=== PATIENT | male | born 1930 | race Caucasian/White ===

== ENCOUNTER → 2016-09-29 | Outpatient (CLI) | payer OTHER ==
--- NOTE | 2016-09-29 11:34 | DX ---
Right shoulder 3 views History: Pain, fall 3 months ago. Comparison: None available. Findings: Old healed right posterolateral fourth rib fracture is noted. Moderate acromioclavicular ar throsis is present. Alignment of the glenohumeral joint is normal. The acromioclavicular and coracocl avicular relationships are normal. Impression: 1. Moderate acromioclavicular arthrosis. 2. Old right fourth rib fracture.
--- NOTE | 2016-09-29 11:39 | DX ---
Right hip 2 views History: Fall 3 weeks ago, pain. Comparison: Lumbar spine July 19, 2014. Findings: Bilateral hip arthroplasties are present without evidence of loosening. There is lucency th rough hypertrophic change in the region of the right greater trochanter, which could be related to fr acture or heterotopic ossification. The greater trochanter was outside the [id number] on the alexis rison MR lumbar spine. Alignment is normal. Severe degenerative change is present in the visualized l umbar spine. Surgical clips overlie the inferior pelvis. Impression: 1. Lucency through the right greater trochanter, which may be related to fracture or heterotopic ossi fication, with normal appearance of the right hip arthroplasty. 2. 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
== END ==
LOC: BMCIMAGING 10:06
PROVIDERS: ATTEND Family Medicine
DX: M25.551 Pain in right hip (principal); M51.36 Other intervertebral disc degeneration, lumbar region; M19.011 Primary osteoarthritis, right shoulder; W19.XXXA Unspecified fall, initial encounter

== ENCOUNTER → 2018-06-17 | Outpatient (CLI) | payer OTHER ==
[~2018-06-17] MED LIST: IOPAMIDOL (ISOVUE-300) 100 ML BTL ONE
== END ==
LOC: FIMAGING 09:25
PROVIDERS: ATTEND Family Medicine Geriatric Medicine
DX: G31.9 Degenerative disease of nervous system, unspecified (principal); R90.82 White matter disease, unspecified; H61.23 Impacted cerumen, bilateral
CPT/HCPCS: 70470; Q9967

== ENCOUNTER 2018-10-01 15:25 | Emergency (ER) | payer OTHER ==
--- NOTE | 2018-10-01 15:47 | EDPHY ---
HPI/HX/ROS/PE/MDM Narrative: CHIEF COMPLAINT: Fall, finger injury HPI: The patient is an anticoagulated 88 y/o male with a history of hypertension and ME who arrives with his family member complaining of right finger injury secondary to a mechanical slip and fall on the sidewalk one hour prior to arrival. He describes striking the back of his head on the sidewalk without associated LOC, weakness, paresthesias, or acute neck or back pain. He was able to stand up after the fall. He is primarily complaining of right little finger pain. He denies chest pain, dyspnea, abdominal pain, pelvis pain, weakness, paresthesias, or other extremity injuries. REVIEW OF SYSTEMS: A comprehensive 10 system review of systems is otherwise negative aside from elements mentioned in the history of present illness. PMH: Hypertension, ME - anticoagulant SOCIAL HISTORY: Family member at bedside. Lives in [place]. . Retired. PHYSICAL EXAM: General:Patient is alert, in no acute distress. Head: Atraumatic. ENT:Eyes are normal to inspection. ENT inspection normal. Neck: Normal inspection. Full range of motion. Respiratory:No respiratory distress. Breath sounds normal bilaterally. Cardiovascular: Regular rate and rhythm. Strong peripheral pulses. Normal cap refill. Abdomen:The abdomen is nontender to palpation. There are no peritoneal signs. Back: Normal to inspection. No tenderness to palpation. Skin: Normal color. No rash. Warm and dry. Extremities: Ecchymosis and skin tear volar aspect of right 5th finger at DIP joint, otherwise normal appearance. Full range of motion. Neuro: Oriented x3. Normal motor function. Normal sensory function. ED Course: 88 y/o male on anticoagulants presents for evaluation of head strike and right little finger injury secondary to mechanical slip and fall this afternoon. Exam is atraumatic apart from ecchymosis and skin tear of DIP joint on right little finger. Neuro exam is nonfocal. Due to anticoagulation and age, plan for head CT for evaluation of intracranial injury in addition to finger x-ray. Head CT: negative Finger x-ray: nondisplaced fracture of distal phalanx Reassessed patient and discussed findings. Exam remains unchanged. [place]um[place]am splint applied to finger. Patient will bed discharged with standard care and follow up instructions. Referral to hand specialist provided. Return precautions discussed. He and his family are comfortable with plan for discharge. - Data Points Imaging Results: Imaging Impressions Hand X-Ray 10/01/18 15:44 Impression: Nondisplaced fracture involving the base of the 5th distal phalanx. Head CT 10/01/18 15:45 Impression: 1. Stable moderate atrophy. 2. No hemorrhage, mass effect, or definite acute peripheral infarct. 3. Stable moderate nonspecific hypodensities in the white matter of bilateral cerebral hemispheres. Differential diagnosis includes microvascular ischemic disease, post-infectious/post-inflammatory sequela, atypical demyelinating disease, or migraine-related sequela. Small white matter lacunar infarcts may also have this appearance. If symptoms worsen, additional imaging may be necessary. Imaging: Discussed imaging studies w/ call center rn Radiologist, I viewed and interpreted images myself General Time Seen by Provider: 10/01/18 15:29 Initial Vital Signs: Initial Vital Signs Temperature (C) 36.5 C 10/01/18 15:34 Heart Rate 73 10/01/18 15:34 Respiratory Rate 18 10/01/18 15:34 Blood Pressure 136/84 H 10/01/18 15:34 O2 Sat (%) 96 10/01/18 15:34 O2 Delivery Mode Room Air Allergies/Adverse Reactions: No Known Allergies Allergy (Unverified 10/01/18 15:33) Home Medications: Medication Instructions Recorded Unknown Blood Thinner 10/01/18 Departure - Departure Disposition: Home, Routine, Self-Care Clinical Impression: Fall Qualifiers: Encounter type: initial encounter Qualified Code(s): W19.XXXA - Unspecified fall, initial encounter Finger fracture Qualifiers: Encounter type: initial encounter Finger: little finger Fracture type: closed Phalanx: distal Fracture alignment: nondisplaced Laterality: right Qualified Code(s): S62.666A - Nondisplaced fracture of distal phalanx of right little finger, initial encounter for closed fracture Condition: Good Instructions: Finger Fracture (ED), Fall Prevention for Older Adults (ED) Additional Instructions: 1. Wear splint until follow up appointment. 2. Tylenol as directed on the packaging as needed for pain for the next few days. You can also apply ice packs to sore areas intermittently for the next 1- 2 days if helpful for pain. 3. Follow up with hand specialist in the next week for reevaluation. 4. Return for worsening of condition. Referrals: Fahad Singh MD [Primary Care Provider] - As per Instructions Perez Gonzalez MD [Medical Doctor] - As per Instructions Report Scribed for: Franc Porter Report Scribed by: Magdalena Morrissey Date of Report: 10/01/18 Time of Report: 15:47 Physician Review and Approval Statement: Portions of this note were transcribed by an ED scribe. I personally performed the history, physical exam, and medical decision making; and confirm the accuracy of the information in the transcribed note.
[2018-10-01 17:04] VITALS: BP 149/81
== END 2018-10-01 17:05 | disposition home or self-care (01) ==
DX: S62.666A Nondisplaced fracture of distal phalanx of right little finger, initial encounter for closed fracture (principal); S06.9X0A Unspecified intracranial injury without loss of consciousness, initial encounter; I10 Essential (primary) hypertension; I25.2 Old myocardial infarction; Z79.01 Long term (current) use of anticoagulants; W01.0XXA Fall on same level from slipping, tripping and stumbling without subsequent striking against object, initial encounter; Y92.480 Sidewalk as the place of occurrence of the external cause
CPT/HCPCS: 70450; 73130; 99284; L3925

== ENCOUNTER → 2018-11-16 | Outpatient (CLI) | payer OTHER | LOC: FIMAGING 15:47 | PROVIDERS: ATTEND Orthopaedic Surgery | DX: T84.050A Periprosthetic osteolysis of internal prosthetic right hip joint, initial encounter (principal); Z96.643 Presence of artificial hip joint, bilateral ==

== ENCOUNTER 2018-12-01 19:42 | Inpatient (IN) | payer OTHER ==
[2018-12-01] MEDS ORDERED: NS 1,000 ML IV ONE (20:26)
--- NOTE | 2018-12-01 20:33 | EDPHY ---
H & P Time Seen by Provider: 12/01/18 20:04 HPI/ROS: Chief complaint. Painful legs HPI. 88-year-old male when I go into the room is having speech difficulty. His granddaughter is here and says that she saw him at 8:00 a.m. This morning and he was normal. His speech was normal and he was having normal mentation. She went to check on him at 7:20 this evening and found the patient to be confused and having trouble speaking. She brought him to the emergency department and the complaint was painful legs. Again when I went to he was clearly having difficulty speaking and I have called a stroke activation. Patient lives independently in assisted living and as far as we know no one has seen the patient between 8:00 a.m. And 7:20 p.m. So we do not know the onset of his speech difficulty. Granddaughter tells me that he may have a break in the bones of 1 of his legs. The patient is having a hard time telling me whether there has been recent fall or trauma. As far as I can tell no chest pain or trouble breathing. No abdominal pain. ROS 10 systems were reviewed and negative with the exception of the elements mentioned in the history of present illness Past Medical/Surgical History: Hypertension, recent femur fracture, PA Social History: Single, nonsmoker, no alcohol Smoking Status: Never smoked Physical Exam: General Appearance: Alert well-developed male moderate distress vital signs are stable Eyes: Pupils equal and round no pallor or injection. ENT, Mouth: Mucous membranes are moist. Respiratory: There are no retractions, lungs are clear to auscultation. Cardiovascular: Regular rate and rhythm. Gastrointestinal: Abdomen is soft and nontender, no masses, bowel sounds normal. Neurological: Awake and alert, sensory and motor exams grossly normal. Speech is garbled. Patient is confused. Cranial nerves appear intact possibly slight right mouth droop. [id number] is somewhat ataxic with both hands and patient has a hard time following commands. Appears to be some weakness in his right leg Skin: Warm and dry, no rashes. Musculoskeletal: Neck is supple nontender. Extremities symmetrical, full range of motion. Pain both hips Psychiatric: Patient is oriented X 3, there is no agitation. Constitutional: Initial Vital Signs Temperature (C) 37.2 C 12/01/18 19:53 Heart Rate 62 12/01/18 19:53 Respiratory Rate 18 12/01/18 19:53 Blood Pressure 133/70 H 12/01/18 19:53 O2 Sat (%) 95 12/01/18 19:53 O2 Delivery Mode Room Air Allergies/Adverse Reactions: No Known Allergies Allergy (Unverified 12/01/18 19:55) Home Medications: Medication Instructions Recorded Clopidogrel Bisulfate [Clopidogrel] 75 mg PO DAILY 12/01/18 Lisinopril [Zestril 5 mg (*)] 5 mg PO DAILY 12/01/18 Metoprolol Succinate 25 mg PO DAILY 12/01/18 Medical Decision Making - Diagnostics EKG Interpretation: EKG interpreted by me shows normal sinus rhythm normal interval. Normal axis. QRS is normal. Anterior Q-waves. No significant ST elevation or depression. No arrhythmia. Rate 67 Imaging Results: Imaging Impressions Head CT 12/01/18 20:27 Impression: Elderly head CT. Nothing acute identified.. Initial results discussed with Dr. Skelton with the patient on the CT table. Final results are concordant with the initial interpretation at 20:58 PM. General information for patients regarding this examination can be found at [email or web address]. If you have questions or comments about this report, please contact me at (hospital) or [phone] (cell). Noncontrast head CT negative. Reviewed by me and discussed with Dr. Nava Perfusion studies show a normal CT angiogram of his head. 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 Carotids are normal. Procedures: IV normal saline monitor ED Course/Re-evaluation: The patient is out of treatment window for tPA as last time known normal was 8: 00 a.m.. He does not have a large vessel occlusion that would require thrombectomy. X-rays of his pelvis and legs are pending and currently being done I consulted discussed case with Dr. Remy, hospitalist who agrees to the admission Differential Diagnosis: Appears the patient has had CVA. Out of treatment window. Plan is admission for stroke workup - Data Points Laboratory Results: Laboratory Results 12/01/18 20:20 12/01/18 20:20 12/01/18 12/01/18 12/01/18 20:24 20:20 20:20 WBC RBC Hgb POC Hgb 13.3 gm/dL L gm/dL (13.7-17.5) Hct POC Hct 39 % L % (40-51) MCV MCH MCHC RDW Plt Count MPV Neut % (Auto) Lymph % (Auto) [place] % (Auto) Eos % (Auto) Baso % (Auto) Nucleat RBC Rel Count Absolute Neuts (auto) Absolute Lymphs (auto) Absolute Monos (auto) Absolute Eos (auto) Absolute Basos (auto) Absolute Nucleated RBC Immature Gran % Seg Neutrophils % Band Neutrophils % Lymphocytes % Monocytes % Eosinophils % Basophils % Metamyelocytes % Myelocytes % Promyelocytes % Blast Cells % Immature Gran # Absolute Seg Neuts Absolute Band Neuts Absolute Lymphocytes Absolute Monocytes Absolute Eosinophils Absolute Basophils Absolute Metamyelocyte Absolute Myelocytes Absolute Promyelocytes Absolute Plasma Cells Nucleated RBCs Absolute Blast Cells Plasma Cells % Platelet Estimate Oval Macrocytes PT 13.7 SEC SEC (12.0-15.0) INR 1.09 (0.83-1.16) POC Sodium 134 mEq/L L mEq/L (135-145) Sodium 128 mEq/L L mEq/L (135-145) POC Potassium 4.2 mEq/L mEq/L (3.3-5.0) Potassium 4.3 mEq/L mEq/L (3.5-5.2) POC Chloride 100 mEq/L mEq/L (97-110) Chloride 99 mEq/L mEq/L (97-110) Carbon Dioxide 23 mEq/l mEq/l (22-31) POC Total CO2 21 mEq/L L mEq/L (22-31) Anion Gap 6 mEq/L mEq/L (6-14) POC BUN 20 mg/dL mg/dL (7-23) BUN 21 mg/dL mg/dL (7-23) Creatinine 1.2 mg/dL mg/dL (0.7-1.3) POC Creatinine 1.2 mg/dL mg/dL (0.7-1.3) Estimated GFR 57 Glucose 92 mg/dL mg/dL (70-100) POC Glucose 96 mg/dL mg/dL (70-100) Calcium 8.7 mg/dL mg/dL (8.5-10.4) 12/01/18 20:20 WBC 12.61 10^3/uL H 10^3/uL (3.80-9.50) RBC 4.12 10^6/uL L 10^6/uL (4.40-6.38) Hgb 12.8 g/dL L g/dL (13.7-17.5) POC Hgb Hct 38.0 % L % (40.0-51.0) POC Hct MCV 92.2 fL fL (81.5-99.8) MCH 31.1 pg pg (27.9-34.1) MCHC 33.7 g/dL g/dL (32.4-36.7) RDW 13.2 % % (11.5-15.2) Plt Count 366 10^3/uL 10^3/uL (150-400) MPV 10.2 fL fL (8.7-11.7) Neut % (Auto) Not Reported Lymph % (Auto) Not Reported [place] % (Auto) Not Reported Eos % (Auto) Not Reported Baso % (Auto) Not Reported Nucleat RBC Rel Count Not Reported Absolute Neuts (auto) Not Reported Absolute Lymphs (auto) Not Reported Absolute Monos (auto) Not Reported Absolute Eos (auto) Not Reported Absolute Basos (auto) Not Reported Absolute Nucleated RBC Not Reported Immature Gran % Not Reported Seg Neutrophils % 64.0 % % Band Neutrophils % 0.0 % % Lymphocytes % 15.0 % % Monocytes % 16.0 % % Eosinophils % 3.0 % % Basophils % 2.0 % % Metamyelocytes % 0.0 % % Myelocytes % 0.0 % % Promyelocytes % 0.0 % % Blast Cells % 0.0 % % Immature Gran # Not Reported Absolute Seg Neuts 8.07 10^3/uL H 10^3/uL (1.70-6.50) Absolute Band Neuts 0.00 10^3/uL 10^3/uL (0.00-0.70) Absolute Lymphocytes 1.89 10^3/uL 10^3/uL (1.00-3.00) Absolute Monocytes 2.02 10^3/uL H 10^3/uL (0.30-0.80) Absolute Eosinophils 0.38 10^3/uL 10^3/uL (0.03-0.40) Absolute Basophils 0.25 10^3/uL H 10^3/uL (0.02-0.10) Absolute Metamyelocyte 0.00 10^3/mL 10^3/mL (0.00-0.00) Absolute Myelocytes 0.00 10^3/mL 10^3/mL (0.00-0.00) Absolute Promyelocytes 0.00 10^3/uL 10^3/uL (0.00-0.00) Absolute Plasma Cells 0.00 10^3/uL 10^3/uL (0.00-0.00) Nucleated RBCs 0 /100 WBC /100 WBC (0-0) Absolute Blast Cells 0.00 10^3/uL 10^3/uL (0.00-0.00) Plasma Cells % 0.0 % % Platelet Estimate ADEQUATE (ADEQ) Oval Macrocytes 1+ H PT INR POC Sodium Sodium POC Potassium Potassium POC Chloride Chloride Carbon Dioxide POC Total CO2 Anion Gap POC BUN BUN Creatinine POC Creatinine Estimated GFR Glucose POC Glucose Calcium Medications Given: Sodium Chloride (Ns) 1,000 mls @ 500 mls/hr IV EDNOW ONE PRN Reason: Protocol Stop: 12/01/18 22:25 Last Admin: 12/01/18 20:56 Dose: 1,000 mls Point of Care Test Results: Chemistry 12/01/18 20:24 POC Sodium 134 mEq/L L mEq/L (135-145) POC Potassium 4.2 mEq/L mEq/L (3.3-5.0) POC Chloride 100 mEq/L mEq/L (97-110) POC Total CO2 21 mEq/L L mEq/L (22-31) POC BUN 20 mg/dL mg/dL (7-23) POC Creatinine 1.2 mg/dL mg/dL (0.7-1.3) POC Glucose 96 mg/dL mg/dL (70-100) ISTAT H&H 12/01/18 20:24 POC Hgb 13.3 gm/dL L gm/dL (13.7-17.5) POC Hct 39 % L % (40-51) Departure - Departure Disposition: [facility] Clinical Impression: CVA (cerebral vascular accident) Qualifiers: CVA mechanism: unspecified Qualified Code(s): I63.9 - Cerebral infarction, unspecified Condition: Fair Referrals: NONE *PRIMARY CARE P,. [Primary Care Provider] - As per Instructions
[2018-12-01 20:40] LABS: PLATELET COUNT 366 10^3/uL (150-400)
[2018-12-01 20:48] LABS: INR 1.09 (0.83-1.16); PROTIME(PATIENT) 13.7 SEC (12.0-15.0)
--- NOTE | 2018-12-01 21:23 | CPEKG ---
Test Reason : OPEN Blood Pressure : / mmHG Vent. Rate : 067 BPM Atrial Rate : 066 BPM P-R Int : 218 ms QRS Dur : 086 ms QT Int : 389 ms P-R-T Axes : -22 024 071 degrees QTc Int : 411 ms Sinus rhythm Borderline prolonged ME interval Consider left ventricular hypertrophy Anterior Q waves, possibly due to LVH Confirmed by Sana Skelton ([id number]) on 12/01/2018 9:22:37 PM Referred By: SANA SKELTON Confirmed By:Sana Skelton
[2018-12-01] MEDS ORDERED: ONDANSETRON 4 MG/2 ML VIAL IVP PRN (21:34)
[2018-12-01] MEDS ORDERED: ONDANSETRON DISINTEGRATING 4 MG TAB PO PRN (21:34)
--- NOTE | 2018-12-01 21:47 | PDGENHP ---
History and Physical - Chief Complaint Slurred Speech - History of Present Illness Mack Patel is a 88 yo M with a PMHx of [place], HTN who presents to [facility] for slurred speech. His granddaughter is at bedside who has helped with history taking. She reports that she spoke with him on the telephone around 8AM and he was normal. Her mother then spoke with the patient around 7:30 PM and he had confusion and slurred speech. He was then brought to ED. Pt is complaining of pain in his legs. His granddaughter notes that he broke one of his legs 1 month ago and has been in some pain since. History Information - Allergies/Home Medication List Allergies/Adverse Reactions: No Known Allergies Allergy (Unverified 12/01/18 19:55) Home Medications: Clopidogrel Bisulfate [Clopidogrel] 75 mg PO DAILY 12/01/18 [Last Taken Unknown] Lisinopril [Zestril 5 mg (*)] 5 mg PO DAILY 12/01/18 [Last Taken Unknown] Metoprolol Succinate 25 mg PO DAILY 12/01/18 [Last Taken Unknown] I have personally reviewed and updated: family history, medical history, social history, surgical history - Past Medical History hypertension, myocardial infarction - Surgical History Additional surgical history: Hip replacement - Family History Positive for: non-pertinent - Social History Smoking Status: Never smoked Review of Systems Review of Systems: Unable to obtain due to AMS Physical Exam Physical Exam: Temp Pulse Resp BP Pulse Ox 37.2 C 62 18 133/70 H 95 12/01/18 19:53 12/01/18 19:53 12/01/18 19:53 12/01/18 19:53 12/01/18 19:53 Constitutional: no apparent distress, chronically ill appearing Eyes: PERRL Ears, Nose, Mouth, Throat: dry mucous membranes Cardiovascular: regular rate and rhythym Respiratory: no respiratory distress Gastrointestinal: soft, non-tender abdomen Musculoskeletal: generalized weakness Neurologic: No AAOx3 Lab Data & Imaging Review 12/01/18 20:20 12/01/18 20:20 WBC 12.61 10^3/uL (3.80-9.50) H 12/01/18 20:20 RBC 4.12 10^6/uL (4.40-6.38) L 12/01/18 20:20 Hgb 12.8 g/dL (13.7-17.5) L 12/01/18 20:20 POC Hgb 13.3 gm/dL (13.7-17.5) L 12/01/18 20:24 Hct 38.0 % (40.0-51.0) L 12/01/18 20:20 POC Hct 39 % (40-51) L 12/01/18 20:24 MCV 92.2 fL (81.5-99.8) 12/01/18 20:20 MCH 31.1 pg (27.9-34.1) 12/01/18 20:20 MCHC 33.7 g/dL (32.4-36.7) 12/01/18 20:20 RDW 13.2 % (11.5-15.2) 12/01/18 20:20 Plt Count 366 10^3/uL (150-400) 12/01/18 20:20 MPV 10.2 fL (8.7-11.7) 12/01/18 20:20 Neut % (Auto) Not Reported 12/01/18 20:20 Lymph % (Auto) Not Reported 12/01/18 20:20 [place] % (Auto) Not Reported 12/01/18 20:20 Eos % (Auto) Not Reported 12/01/18 20:20 Baso % (Auto) Not Reported 12/01/18 20:20 Nucleat RBC Rel Count Not Reported 12/01/18 20:20 Absolute Neuts (auto) Not Reported 12/01/18 20:20 Absolute Lymphs (auto) Not Reported 12/01/18 20:20 Absolute Monos (auto) Not Reported 12/01/18 20:20 Absolute Eos (auto) Not Reported 12/01/18 20:20 Absolute Basos (auto) Not Reported 12/01/18 20:20 Absolute Nucleated RBC Not Reported 12/01/18 20:20 Immature Gran % Not Reported 12/01/18 20:20 Seg Neutrophils % 64.0 % 12/01/18 20:20 Band Neutrophils % 0.0 % 12/01/18 20:20 Lymphocytes % 15.0 % 12/01/18 20:20 Monocytes % 16.0 % 12/01/18 20:20 Eosinophils % 3.0 % 12/01/18 20:20 Basophils % 2.0 % 12/01/18 20:20 Metamyelocytes % 0.0 % 12/01/18 20:20 Myelocytes % 0.0 % 12/01/18 20:20 Promyelocytes % 0.0 % 12/01/18 20:20 Blast Cells % 0.0 % 12/01/18 20:20 Immature Gran # Not Reported 12/01/18 20:20 Absolute Seg Neuts 8.07 10^3/uL (1.70-6.50) H 12/01/18 20:20 Absolute Band Neuts 0.00 10^3/uL (0.00-0.70) 12/01/18 20:20 Absolute Lymphocytes 1.89 10^3/uL (1.00-3.00) 12/01/18 20:20 Absolute Monocytes 2.02 10^3/uL (0.30-0.80) H 12/01/18 20:20 Absolute Eosinophils 0.38 10^3/uL (0.03-0.40) 12/01/18 20:20 Absolute Basophils 0.25 10^3/uL (0.02-0.10) H 12/01/18 20:20 Absolute Metamyelocyte 0.00 10^3/mL (0.00-0.00) 12/01/18 20:20 Absolute Myelocytes 0.00 10^3/mL (0.00-0.00) 12/01/18 20:20 Absolute Promyelocytes 0.00 10^3/uL (0.00-0.00) 12/01/18 20:20 Absolute Plasma Cells 0.00 10^3/uL (0.00-0.00) 12/01/18 20:20 Nucleated RBCs 0 /100 WBC (0-0) 12/01/18 20:20 Absolute Blast Cells 0.00 10^3/uL (0.00-0.00) 12/01/18 20:20 Plasma Cells % 0.0 % 12/01/18 20:20 Platelet Estimate ADEQUATE (ADEQ) 12/01/18 20:20 Oval Macrocytes 1+ H 12/01/18 20:20 PT 13.7 SEC (12.0-15.0) 12/01/18 20:20 INR 1.09 (0.83-1.16) 12/01/18 20:20 POC Sodium 134 mEq/L (135-145) L 12/01/18 20:24 Sodium 128 mEq/L (135-145) L 12/01/18 20:20 POC Potassium 4.2 mEq/L (3.3-5.0) 12/01/18 20:24 Potassium 4.3 mEq/L (3.5-5.2) 12/01/18 20:20 POC Chloride 100 mEq/L (97-110) 12/01/18 20:24 Chloride 99 mEq/L (97-110) 12/01/18 20:20 Carbon Dioxide 23 mEq/l (22-31) 12/01/18 20:20 POC Total CO2 21 mEq/L (22-31) L 12/01/18 20:24 Anion Gap 6 mEq/L (6-14) 12/01/18 20:20 POC BUN 20 mg/dL (7-23) 12/01/18 20:24 BUN 21 mg/dL (7-23) 12/01/18 20:20 Creatinine 1.2 mg/dL (0.7-1.3) 12/01/18 20:20 POC Creatinine 1.2 mg/dL (0.7-1.3) 12/01/18 20:24 Estimated GFR 57 12/01/18 20:20 Glucose 92 mg/dL (70-100) 12/01/18 20:20 POC Glucose 96 mg/dL (70-100) 12/01/18 20:24 Calcium 8.7 mg/dL (8.5-10.4) 12/01/18 20:20 Assessment & Plan Assessment: Altered Mental Status - Concerning for CVA given slurred speech - CT Head w/o IVC on admission w/o acute abnormalities - CTA Head and neck showing widely patent carotid system, 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 - S/p ASA in the ED, already on Plavix - Out of tPA window, unknown onset of symptoms - MRI Brain ordered - TTE bubble study ordered - Lipid panel ordered - Neurology consult placed for the AM - PT/OT/CAM MILLING MACHINE OPERATOR ordered Leg Pain - Recent femur fracture which in non-operative per granddaughter - Xrays are currently pending - PRN pain control - PT/OT ordered Hyponatremia - Na 128 on admission, (POC 134) - Likely hypovolemic - S/p IVF, repeat Na in the AM [place] - Continue home meds pending med rec HTN - Continue home Lisinopril pending med rec FEN: IVF DVT PPx: Lovenox Code: FULL, discussed with granddaughter, she has to discuss with her parents who are POA Dispo: Admit to Observation
[2018-12-01] MEDS: HEPARIN 5,000 UNIT/0.5 ML INJ SC SCH (23:11)
[2018-12-02] MEDS: HEPARIN 5,000 UNIT/0.5 ML INJ SC SCH ×3 (06:09→20:38)
[2018-12-02] MEDS: CLOPIDOGREL BISULFATE 75 MG TAB PO SCH (08:53)
[2018-12-02] MEDS: LISINOPRIL 5 MG TAB PO SCH (08:54)
[2018-12-02] MEDS: METOPROLOL SUCCINATE XR 25 MG TAB PO SCH (08:54)
[2018-12-02] MEDS ORDERED: ASPIRIN 81 MG CHEWABLE TAB PO SCH (09:00)
--- NOTE | 2018-12-02 09:29 | GCON ---
[f rep st] CONSULTATION NEUROLOGIC CONSULTATION REFERRING PHYSICIAN: Brian Remy DO HISTORY: The patient is an 88-year-old gentleman I am asked to see in neurologic consultation regard ing possible stroke. The patient's daughter is in [place], but I spoke to her on the phone. She s ays that he has had progressing dementia for several years and that is getting worse, and she is used to him having trouble with some of his language in verbal expression, but there was a rather signifi cant change yesterday when he was almost "speaking a foreign language." He had apparently been doing fine in the morning, but by 8 p.m., it was clear that there was something not right with his verbal expression, and either slurring of speech or some aphasia was being described. He came to the [facility] for evaluation, and due to the lack of knowledge of true onset, was not a candidate for tPA. He h ad a head CT that showed no hemorrhage or acute pathology. 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 The patient has continued to have some trouble with his communication , but how much of this is different from his baseline is a little hard to say. He denies any headach e. In fact, he is amnestic for why he is even here. He does not think there is anything wrong with his speech, and is very calm and pleasant, but does not recognize any problem. He did not know that his family had him come to the hospital. REVIEW OF SYSTEMS: Negative chest pain, palpitations, or shortness of breath. On the additional past medical history, his daughter says that he had a stent about 5 years ago and h as been on Plavix since that time. He is treated for some hypertension with lisinopril and metoprolo l. He has had hip replacement. He has recent recognition of a small fracture of the right femur sharda t does not require any surgical intervention. He also had a fall a few months ago with an injury to finger. He is . He is retired from the [employer] and moved throughout most of his life, and currently lives at the [facility]. ALLERGIES: There are no known drug allergies. Currently in the hospital, he is receiving Plavix, subcutaneous heparin, lisinopril, metoprolol, Zofr an as needed. PHYSICAL EXAMINATION: VITAL SIGNS: Blood pressure is 149/73. Pulse of 65, respirations 16, tempera ture 36.4. GENERAL: Well developed, in no acute distress. EYES: Clear. NECK: Supple with no brui ts or masses. CARDIAC: Regular rate and rhythm. No murmur. NEUROLOGIC EXAM: He is awake and alert with fairly good attention. His concentration is diminished. He has a hard time with detailed verbal communication, although generally conveys his ideas fairly effectively. He has a tendency to confabulate or make some paraphasic errors. He could not tell me the city or the state, and when I gave him a list, he did not recognize [place] as being the state [place] is in. He will talk in general terms about his situation, but have a hard time with specificity. There is a fairly significant poverty of thought. He did not know the month or the year, and started getting confused thinking that I was asking him his age. He could name objects. He was able to read sentences and single words, and made mild errors only. Daly dewitt could look at a figure and interpret the basics, but some of the finer detail he needed guidance to recognize. He can perform basic calculations and can spell. Pupils are 2 mm and reactive. Extraoc ular movements are intact. Normal facial sensation and strength. Motor exam reveals normal muscle b ulk and tone, 5/5 strength. Palate elevates symmetrically. Tongue protrudes midline. Hearing is pr eserved. Sensation is preserved for temperature and light touch. Reflexes 1+. No ataxia on finger- to-nose. LABORATORY STUDIES: As outlined, with white count of 12,000, hematocrit of 39%. Normal INR. Chemis try: Sodium of 134, LDL cholesterol 64, otherwise normal basic metabolic panel. Urinalysis unremark able. NIH Stroke Scale is 1. IMPRESSION: Total unit time of 70 minutes. This patient has experienced a change in language consis tent with aphasia on top of a baseline advancing dementia where he also has some expressive language difficulties confirmed by his daughter. Therefore, how much of this is truly new compared to his inder carrasco is a little hard to say. However, his daughter confirms that what she heard yesterday was dram atically different and not something she had seen before, so I suspect he had either a small stroke i n the left hemisphere middle cerebral artery territory or a TIA, and may be close to his baseline aga in. Outside of the mild aphasia and the clear underlying dementia, he is comfortable. No large vess el occlusion is evident from the workup. We will obtain brain MRI for further clarification of kathy e, and echocardiogram will be obtained, as well. Once we know for sure about the MRI, we can decide about adding aspirin to the Plavix, but I will continue the Plavix 75 mg for now. We can also consid er pros and cons of adding statin therapy, but generally would recommend statin therapy for secondary stroke prophylaxis even with a good LDL as he has. /[id number]/MODL
--- NOTE | 2018-12-02 11:17 | ECHO ---
[email or web address] [address] [address] Main: [phone] Echocardiography Examination Transthoracic Name: Jonathan VARELA MR#: [id number] Study Date: 12/02/2018 Study Time: 07:41 AM Date of : 1930 Age: 88 year(s) Height: 182.9 cm (72 in.) Weight: 77.11 kg (170 lb.) BSA: 1.99 m2 Gender: Male Examination: Echo Contrast: Image Quality: Adequate Rhythm: Normal sinus rhythm Heart Rate: 63 bpm BP: / Indication: Ischemic Stroke, Confusion Procedure Staff Referring Physician: Gasoline Tractor Operator: Maurilio Magdaleno RDCS Reading Physician: Daniel Wheeler MD Requesting Provider: Ordering Physician: Brian Remy Indication: Ischemic Stroke, Confusion Measurements Chambers AV/MV Label Value Normal Value Label Value Normal Value EF lower range (%) 50 % AV PGmax 11 mmHg EF upper range (%) 55 % AV PGmean 6 mmHg IVSd, 2D 0.8 cm (0.6cm - 1.1cm) AV Vmax 1.66 m/s LVDd, 2D 4.9 cm (4.2cm - 5.9cm) DHAVAL (continuity eq. 1.6 cm2 LVDs, 2D 3.5 cm (2.1cm - 4cm) Vmax) LVEF, 2D 54 % (54% - 74%) DHAVAL D (continuity eq. 2 cm2 LVOT PGmax 2 mmHg VTI) LVOT PGmean 1 mmHg MV A Vmax 0.68 m/s LVOT Vmax 0.79 m/s (0.7m/s - 1.1m/s) MV E' lateral 0.06 m/s LVOT Vmean 0.55 m/s MV E' mean 0.06 m/s LVOTd 2.1 cm (1.9cm - 2.1cm) MV E' septal 0.05 m/s LVPWd, 2D 0.8 cm (0.6cm - 1cm) MV E Vmax 0.74 m/s LA Volume, BP 61 ml (18ml - 58ml) MV E/A 1.09 LADs, 2D 3.2 cm (3cm - 4cm) MV E/E' lateral 11.9 LAESV index, BP 30.7 ml/m2 MV E/E' mean 13.45 Additional Vessels MV E/E' septal 14.3 (0.45 - 1.25) Label Value Normal Value TV/PV AoRoot, MM 2.6 cm (2.2cm - 3.7cm) Label Value Normal Value RA Pressure 5 mmHg Patient: Jonathan VARELA Study Date: 12/02/2018 Page 1 of 2 07:41 AM RVSP 19 mmHg TR Pmax 14 mmHg TR Vmax 1.9 m/s Conclusions Overall Conclusions: No pericardial effusion. Anterior hypokinesis. Ejection fraction 50-55%. Injection of agitated saline revealed no evidence of right to left shunting. Right ventricular systolic pressure is 19 mm of mercury. Findings Left Ventricle: There is basilar to mid anteroseptal hypokinesis.. Left ventricle is on the upper limits of normal. Low normal left ventricular systolic function. EF range is estimated at 50 % - 55 %. Left ventricle wall thickness is normal. Left ventricular diastolic function parameters are normal. Right Ventricle: Normal size right ventricle. The RV function appears grossly normal. Left Atrium: The left atrium is normal in size. IAS: An agitated saline study was performed and was negative for intracardiac shunting. Right Atrium: The right atrium is normal in size. Mitral Valve: Trivial mitral regurgitation. No mitral valve stenosis. There is minimal mitral calcification. Aortic Valve: No aortic valve regurgitation. There is no aortic stenosis. Aortic leaflets exhibit mild calcification. The aortic valve is not visualized well enough to rule out a bicuspid morphology. Tricuspid Valve: Trivial tricuspid regurgitation. Right Ventricular systolic pressure is measured at 19 mmHg. Pulmonary artery pressure normal. Pulmonic Valve: Pulmonic leaflets are normal in appearance and function. No pulmonic valve regurgitation is evident. Aorta: The aorta is normal. The aortic root size in M-mode measures 2.6 cm. Aorta Measurements AoRoot, MM is 2.6 cm. Pericardium: No pericardial effusion. Exam Details Procedure Ordered: Echo Procedure Status: Routine study Image Quality: Adequate Facility Location: Cardiac Echo 1 (No Signature Object) Patient: Jonathan VARELA Study Date: 12/02/2018 Page 2 of 2 07:41 AM [id number]
--- NOTE | 2018-12-02 12:38 | HOSPPROG ---
Hospitalist Progress Note Assessment/Plan: 88 year old male with pmh of fairly advanced dementia admitted with slurred speech and aphasia Slurred speech/AMS- concerning for CVA, although paitent denies any problem. CTA head and neck with no acute CVA. Neurology has been consulted who recommends MRI brain, and TTE. I reviewed the echo and find no explanation for his symptoms. He is already on plavix. -await brain MRI -neurology graciously assisting. -cont plavix -could consider statin Leg Pain - Recent femur fracture which in non-operative per granddaughter - Xrays are currently pending - PRN pain control - PT/OT ordered Hyponatremia- suspect hypovolemic hyponatremia. increased to 134 overnight with intravenous saline. Will continue with low dose saline intravenous and repeat Na in am. if fails to correct will obtain urine studies. [place] - Continue home meds, including metoprolol, plavix and lisinopril. HTN - Continue home chloe and bb FEN: IVF DVT PPx: Lovenox Code: DNR per chart. Dispo: change to inpatient for continued eval of aphasia, slurred speech, MRI. Subjective: no complaints. Objective: Vital Signs Temp Pulse Resp BP Pulse Ox 36.7 C 65 18 151/73 H 94 12/02/18 11:45 12/02/18 11:45 12/02/18 11:45 12/02/18 11:45 12/02/18 11:45 Laboratory Results 12/02/18 04:27 12/01/18 12/02/18 12/03/18 05:59 05:59 05:59 Intake Total 200 Balance 200 PT 13.7 SEC (12.0-15.0) 12/01/18 20:20 INR 1.09 (0.83-1.16) 12/01/18 20:20 - Physical Exam Constitutional: no apparent distress, appears nourished, not in pain Eyes: PERRL, anicteric sclera, EOMI Ears, Nose, Mouth, Throat: moist mucous membranes, hearing normal, ears appear normal, no oral mucosal ulcers Cardiovascular: regular rate and rhythym, no murmur, rub, or gallop Respiratory: no respiratory distress, no rales or rhonchi, clear to auscultation Gastrointestinal: normoactive bowel sounds, soft, non-tender abdomen, no palpable masses Genitourinary: no bladder fullness, no bladder tenderness, no renal bruits Skin: no rashes or abrasions, no fluctuance, no induration Musculoskeletal: full muscle strength, no muscle tenderness, normal joint ROM Neurologic: other (oriented to self only. Does not known year, city, state, or president. ) Psychiatric: interacting appropriately Lymph, Heme, Immunologic: no cervical LAD ICD10 Worksheet Patient Problems: Problems Problem Status Onset CVA (cerebral vascular accident) Acute
[2018-12-02] MEDS ORDERED: NS 1,000 ML IV SCH (15:15)
[2018-12-02] MEDS: LORazepam 2 MG/ML INJ IVP PRN ×2 (16:10→20:37)
[2018-12-02] MEDS ORDERED: GADOBUTROL 10 ML VIAL IVP ONE (16:30)
--- NOTE | 2018-12-02 16:58 | ASMTCMCOM ---
CM Note CM Note Notes: Chart Review for Discharge Planning: Patient is an 88 year old male who presented to [facility] ED reporting leg pain and presented with difficulty speaking/slurred speech and aphasia. Patient presented to ED with Grand daughter. Medical history includes dementia, hypertension, Myocardial infarction, recent femur fracture. Patient currently lives at [facility]. OT ordered, recommending ASSISTED/home with 24 hour supervision, PT ordered & recommending SNF, NECK BAND OPERATOR ordered & recommending memory care. CM call to Grand daughter Shante, , she shares he lives at [facility] and has a caregiver that visits 8-10 daily and he also attends adult day services --. He has PT with [facility] on . She shares she would be open to him staying with her when he discharges but is not around very much and is very busy. Shante states she does not know much about her Grandfathers medical history & recommended calling her mom, Marie on her dad's cell phone [phone], who is currently in [facility] on a trip. CM spoke with daughter Marie, CM shared recommendations for SNF, she states he doesn't have history of going to a SNF and though she agrees and thinks it is a good plan, she does not think he will agree and will want to go home. Marie shares she is planning on getting him into an Assisted Living Facility when she returns from [facility] in a month. She states she would like to speak with his MD about the Neuro consult and imaging results. CM call to Tere with [facility] [employer], . MARVA stating we are monitoring patient and will send updates as we have them. *Fiorella Salazar in [facility] for one month, can be reached at [phone]. Plan: Neuro recommended MRI of brain and TTE. CM to follow. D/C Plan: TBD Date Signed: 12/02/2018 04:58 PM Electronically Signed By:Naa Durbin
[2018-12-02] MEDS: ACETAMINOPHEN 325 MG TAB PO PRN (20:37)
[2018-12-03] MEDS: LORazepam 2 MG/ML INJ IVP PRN ×2 (01:17→22:11)
[2018-12-03] MEDS: HEPARIN 5,000 UNIT/0.5 ML INJ SC SCH ×3 (04:44→21:09)
[2018-12-03 05:14] LABS: PLATELET COUNT 352 10^3/uL (150-400)
--- NOTE | 2018-12-03 08:19 | NEUROPROG ---
Assessment: total unit time of 15 minutes. Patient with advance dementia and may have had TIA or just the spectrum of his dementia with aphasia and confusion that is his reported baseline. Disposition in progress. Subjective: The patient has not complaints Objective: Vital Signs Temp Pulse Resp BP Pulse Ox 36.5 C 81 26 H 186/84 H 98 12/03/18 08:00 12/03/18 08:00 12/03/18 08:00 12/03/18 08:00 12/03/18 08:00 Laboratory Results 12/03/18 04:19 12/03/18 04:19 12/02/18 12/03/18 12/04/18 05:59 05:59 05:59 Intake Total 200 495 Balance 200 495 PT 13.7 SEC (12.0-15.0) 12/01/18 20:20 INR 1.09 (0.83-1.16) 12/01/18 20:20 Patient remains disoriented and has no insight on his limitations. MRI shows no acute stroke. Allergies/Adverse Reactions: No Known Allergies Allergy (Unverified 12/01/18 19:55)
[2018-12-03] MEDS: CLOPIDOGREL BISULFATE 75 MG TAB PO SCH (08:37)
[2018-12-03] MEDS: METOPROLOL SUCCINATE XR 25 MG TAB PO SCH (08:37)
[2018-12-03] MEDS: LISINOPRIL 5 MG TAB PO SCH (08:37)
[2018-12-03] MEDS ORDERED: LISINOPRIL 5 MG TAB PO SCH (09:48)
[2018-12-03] MEDS ORDERED: BISACODYL 10 MG SUPP PR ONE (09:50)
[2018-12-03] MEDS ORDERED: LISINOPRIL 5 MG TAB PO ONE (09:51)
--- NOTE | 2018-12-03 13:47 | HOSPPROG ---
Hospitalist Progress Note Assessment/Plan: 88 year old male with pmh of fairly advanced dementia admitted with slurred speech and aphasia Slurred speech/AMS- I read the MRI and there is no acute CVA/TIA. It is possible that he did have an underlying event but with his age, and level of dementia it is too difficult to discern. I reviewed neurology input and agree with holding off on dual antiplatelet on top of plavix. CTA head and neck with no acute CVA. -neurology graciously assisting. -cont plavix -add statin -BP control Leg Pain - Recent femur fracture which in non-operative per granddaughter - Xrays negative - PRN pain control - PT/OT ordered Hyponatremia- suspect hypovolemic hyponatremia. resolved with fluids. [place] - Continue home meds, including metoprolol, plavix and lisinopril. HTN - on lisinopril 5mg, and lopressor. I increased his lisinopril to 10 today and added PRN hydralazine as he is still hypertensive. FEN: IVF DVT PPx: Lovenox Code: DNR per chart. Dispo: remain inpatient for possible CVA/TIA. Subjective: no complaints. remains pleasantly confused. Objective: Vital Signs Temp Pulse Resp BP Pulse Ox 36.6 C 68 14 196/88 H 94 12/03/18 11:20 12/03/18 12:50 12/03/18 12:50 12/03/18 12:50 12/03/18 12:50 PT 13.7 SEC (12.0-15.0) 12/01/18 20:20 INR 1.09 (0.83-1.16) 12/01/18 20:20 - Physical Exam Constitutional: no apparent distress Eyes: PERRL Ears, Nose, Mouth, Throat: moist mucous membranes Cardiovascular: regular rate and rhythym Respiratory: no respiratory distress Gastrointestinal: normoactive bowel sounds Genitourinary: no bladder fullness Skin: warm, normal color Musculoskeletal: full muscle strength Neurologic: other (oriented to person only. ) Psychiatric: interacting appropriately Lymph, Heme, Immunologic: no cervical LAD ICD10 Worksheet Patient Problems: Problems Problem Status Onset CVA (cerebral vascular accident) Acute
[2018-12-03] MEDS: hydrALAZINE 20 MG/ML VIAL IVP PRN ×2 (14:01→23:06)
--- NOTE | 2018-12-03 15:26 | ASMTCMCOM ---
CM Note CM Note Notes: Spoke with pt's daughter Marie (RICKY) who is currently in [place] and will soon be out of phone range. She will be gone for a few weeks. Her brother Perez is the alternate [facility] [phone] and should be contacted for medical decisions. Spoke with both of them regarding therapy recommendation for a short term rehab stay at d/c. They are both in agreement with the plan although not convinced it will benefit their father. Referrals were sent to [facility] - [facility] (declined pt - concerned about him frequently getting up and down), [facility] and [facility] accepted. Earliest d/c would be 12/06 as pt was just changed from obs status to inpt today. Also spoke with Ksenia the Exec Director at the [facility] and they are concerned about him returning there 2/2 being a high fall risk. It is independent living and pt is currently have difficulty getting around. CM will continue to follow. D/C plan: TBD, possibly SNF Date Signed: 12/03/2018 03:26 PM Electronically Signed By:FRANCOIS Santana
[2018-12-03] MEDS: ACETAMINOPHEN 325 MG TAB PO PRN (23:01)
[2018-12-04] MEDS: LORazepam 2 MG/ML INJ IVP PRN (02:31)
[2018-12-04] MEDS: HEPARIN 5,000 UNIT/0.5 ML INJ SC SCH ×3 (04:19→21:27)
[2018-12-04] MEDS: ATORVASTATIN CALCIUM 10 MG TAB PO SCH (08:36)
[2018-12-04] MEDS: CLOPIDOGREL BISULFATE 75 MG TAB PO SCH (08:37)
[2018-12-04] MEDS: METOPROLOL SUCCINATE XR 25 MG TAB PO SCH (08:38)
--- NOTE | 2018-12-04 11:02 | ASMTCMCOM ---
CM Note CM Note Notes: CM spoke with pt's daughter and son. Both are supportive of d/c to SNF; pt's teo requested [facility]. Will inform [facility] and ask them to run auth. D/C Plan: [facility] Date Signed: 12/04/2018 11:02 AM Electronically Signed By:Alesha Sanabria
--- NOTE | 2018-12-04 11:53 | PDMN ---
Medical Necessity Medical necessity: Change to IP, as of 12/03/18, per MD & MCG M-360; los >2 mn for ongoing management of possible TIA/CVA vs advanced dementia w/aphasia & confusion; requiring further monitoring & therapies; comorbid advanced age, recent non-operative femur fx
--- NOTE | 2018-12-04 15:03 | HOSPPROG ---
Hospitalist Progress Note Assessment/Plan: 88-year-old with advanced dementia admitted with slurred speech and aphasia. Evaluation and Neurology consult has not confirmed an obvious stroke and he appears to be getting close to baseline at this time, unfortunately he is not able to return to his usual living situation and will need skilled rehab for strengthening before returning to the [facility]. # slurred speech, encephalopathy, reviewed neurology note and agree this could be dementia versus TIA * Continue Plavix * Add a statin to prevent further strokes * Continue PT, will need rehab prior to returning to the [facility] at this time. # hypertension currently on lisinopril and Lopressor will monitor # CAD status post OK will continue his usual medications # leg pain with recent femur fracture which is non operative and negative x- rays this admission. Continue PT and OT as above. Remains inpatient for possible stroke and multiple comorbidities including balance issues and high risk for fall. Subjective: Patient new to nm and chart reviewed. Has significant advanced dementia, eager to continue walking but needs assistance. Minimal pain Objective: Vital Signs Temp Pulse Resp BP Pulse Ox 36.5 C 73 20 146/85 H 98 12/04/18 07:51 12/04/18 11:51 12/04/18 11:51 12/04/18 11:51 12/04/18 11:51 12/03/18 12/04/18 12/05/18 05:59 05:59 05:59 Intake Total 300 900 Output Total 200 Balance 100 900 PT 13.7 SEC (12.0-15.0) 12/01/18 20:20 INR 1.09 (0.83-1.16) 12/01/18 20:20 - Physical Exam Constitutional: no apparent distress, not in pain, chronically ill appearing Eyes: PERRL Ears, Nose, Mouth, Throat: moist mucous membranes Cardiovascular: regular rate and rhythym Respiratory: no respiratory distress, clear to auscultation Gastrointestinal: soft, non-tender abdomen Genitourinary: no bladder fullness Skin: normal color Musculoskeletal: generalized weakness Neurologic: No AAOx3, No facial droop Psychiatric: poor insight ICD10 Worksheet Patient Problems: Problems Problem Status Onset CVA (cerebral vascular accident) Acute
[2018-12-04] MEDS: ACETAMINOPHEN 325 MG TAB PO PRN (16:20)
[2018-12-05] MEDS: HEPARIN 5,000 UNIT/0.5 ML INJ SC SCH ×3 (05:12→21:46)
[2018-12-05] MEDS: METOPROLOL SUCCINATE XR 25 MG TAB PO SCH (09:08)
[2018-12-05] MEDS: LISINOPRIL 5 MG TAB PO SCH (09:08)
[2018-12-05] MEDS: ATORVASTATIN CALCIUM 10 MG TAB PO SCH (09:09)
[2018-12-05] MEDS: CLOPIDOGREL BISULFATE 75 MG TAB PO SCH (09:09)
--- NOTE | 2018-12-05 13:23 | ASMTCMCOM ---
CM Note CM Note Notes: CM received call from daughter Marie from [facility] asking for status of discharge. CM shared he looks to be clinically stable to discharged as planned tomorrow morning. Marie was asking when he would be discharged, CM shared we will attempt to discharge as early in the morning and will contact [facility] today so they can prepare for discharge to be set up earlier in the morning. Please call Marie at [phone] to update with discharge info tomorrow. CM contacted Huan at [facility] [phone], he will not be in tomorrow but will let [facility] to expect to arrange signal operator transport for the patient. CM to follow. D/C Plan: [facility] Date Signed: 12/05/2018 01:22 PM Electronically Signed By:Naa Durbin
[2018-12-05] MEDS: ACETAMINOPHEN 325 MG TAB PO PRN (13:57)
--- NOTE | 2018-12-05 15:21 | HOSPPROG ---
Hospitalist Progress Note Assessment/Plan: 88-year-old with advanced dementia admitted with slurred speech and aphasia. Evaluation and Neurology consult has not confirmed an obvious stroke and he appears to be getting close to baseline at this time, unfortunately he is not able to return to his usual living situation and will need skilled rehab for strengthening before returning to the [facility]. # slurred speech, encephalopathy, reviewed neurology note and agree this could be worsening dementia versus TIA. MRI showed no stroke. CTAs were negative and ECHO showed no clot. No afib. * Continue Plavix * Add a statin to prevent further strokes * Continue PT, will need rehab prior to returning to the [facility] at this time. # hypertension currently on lisinopril and Lopressor will monitor, has been elevated * increase lisinopril to 20mg daily and follow # CAD status post [place] will continue his usual medications # leg pain with recent femur fracture which is non operative and negative x- rays this admission. Continue PT and OT as above. Remains inpatient for possible stroke and multiple comorbidities including balance issues and high risk for fall. Dispo: CM working on disposition SNF rehab since the [facility] is independent living and he may not be able to return there at this time. He was place inpatient on 12/03 and can transfer to [facility] on 12/06. Subjective: no pain Objective: Vital Signs Temp Pulse Resp BP Pulse Ox 36.3 C 74 14 127/81 H 98 12/05/18 07:48 12/05/18 10:51 12/05/18 07:48 12/05/18 10:51 12/05/18 07:48 12/04/18 12/05/18 12/06/18 05:59 05:59 05:59 Intake Total 300 1500 Output Total 200 Balance 100 1500 PT 13.7 SEC (12.0-15.0) 12/01/18 20:20 INR 1.09 (0.83-1.16) 12/01/18 20:20 - Physical Exam Constitutional: no apparent distress Respiratory: no respiratory distress Neurologic: No AAOx3 Psychiatric: interacting appropriately, poor memory ICD10 Worksheet Patient Problems: Problems Problem Status Onset CVA (cerebral vascular accident) Acute
[2018-12-06] MEDS: HEPARIN 5,000 UNIT/0.5 ML INJ SC SCH (05:16)
[2018-12-06 08:00] VITALS: BP 141/78
--- NOTE | 2018-12-06 09:48 | PDIAF ---
- Diagnosis Diagnosis: TIA, confusion Code Status: Do Not Resuscitate - Medication Management Discharge Medications: electronically signed and located in the Home Medication List. - Orders Services needed: Registered Nurse, Physical Therapy, Occupational Therapy Diet Recommendation: no restrictions on diet Diet Texture: Regular Texture Diet, Thin Liquids, Meds Whole w/Liquids - Follow Up Care Current Providers and Referrals: NONE *PRIMARY CARE P,. [Primary Care Provider] - As per Instructions
[2018-12-06] MEDS: LISINOPRIL 5 MG TAB PO SCH (10:00)
[2018-12-06] MEDS: CLOPIDOGREL BISULFATE 75 MG TAB PO SCH (10:01)
[2018-12-06] MEDS: METOPROLOL SUCCINATE XR 25 MG TAB PO SCH (10:01)
[2018-12-06] MEDS: ATORVASTATIN CALCIUM 10 MG TAB PO SCH (10:01)
--- NOTE | 2018-12-06 10:12 | ASMTLACE ---
LACE Length of stay for Answers: 3 days current admission Acuity / Level of Answers: Yes Care: Did the patient have an inpatient admission? Comorbidities - select Answers: Previous myocardial all that apply infarction Other Notes: HTN # of Emergency department Answers: 1-2 visits in the last 6 months Score: 9 Date Signed: 12/06/2018 10:11 AM Electronically Signed By:Alicja He RN
--- NOTE | 2018-12-06 10:21 | ASMTDCNOTE ---
Case Management Discharge Discharge Order Complete? Answers: Yes Patient to Obtain Answers: Other Notes: [facility] Medications Transportation Arranged Answers: Other Transport will Pick (Date 12/06/2018 11:30 AM & Time) Faxed Final Orders Answers: Yes Family Notified Answers: Yes Discharge Comments Notes: Patient discharged to [facility]. Son Pat notified. Transport arranged by Vasiliy at [facility]. JEN Vasquez to call report. Date Signed: 12/06/2018 10:20 AM Electronically Signed By:Alicja He RN
--- NOTE | 2018-12-06 13:01 | GDS ---
[f rep st] DISCHARGE SUMMARY ALL DIAGNOSES: 1. Slurred speech, encephalopathy, possible transient ischemic attack. 2. Underlying dementia. 3. Hypertension. 4. Coronary artery disease, status post myocardial infarction. 5. Leg pain and recent femur fracture. HOSPITAL COURSE: This is an 88-year-old man with some dementia, who was admitted after some slurred speech. He had full stroke/TIA workup, which was negative. He had a negative MRI for stroke, negati ve echocardiogram, and negative CT angiography of the head and neck. He had no atrial fibrillation o n telemetry. He was seen by Neurology, who recommended continuing his Plavix. We have added a stati n, as well. He is overall improving. It is unclear if this really represents a TIA versus encephalo kendall in the setting of his known dementia. We have increased his lisinopril from 5 mg to 20 mg give n his uncontrolled hypertension. He will also continue his Lopressor. He is not ready to return [facility] to independent living. Thus, he is being discharged to a group home facility at this time. He had some leg pain. He has a known recent femur fracture that is nonoperative. X-ray showed nothi ng acute. He does have coronary artery disease; however, he has had no chest pain. He is on appropriate medica tions for this. DISPOSITION: Discharged to the group home facility in stable condition. BILLING: I spent more than 30 minutes on the day of discharge coordinating care. /[id number]/MODL
--- NOTE | 2018-12-07 14:33 | ASDISCHSUM ---
Discharge Information Plan Status:SNF Medically Cleared to Leave: Discharge Date:12/06/2018 11:39 AM CM D/C Disposition:[facility] Facility ADT D/C Disposition:[facility] Facility Projected Discharge Date:12/04/2018 11:00 AM Transportation at D/C:Wheelchair Van Discharge Delay Reason: Follow-Up Date:12/04/2018 11:00 AM Discharge Slot: Final Diagnosis: Placement Information Referral Type:*Fdc/SNF Referral ID:[id number] Provider Name:[facility] Address 1:[address] Address 2: City:[place] Selection Factors: State:[place] Patient Contact Information Contact Name:LIBBY LIPSCOMB Relationship:Daughter Address:[address] [place] [address] City:[place] Alternate Phone: State/Zip Code:[place] [address] Email: Financial Information Financial Class:Medicare Primary Plan Desc:MEDICARE INPATIENT Primary Plan Number:[id number] Secondary Plan Desc:[employer] Secondary Plan Number:[id number] Assessment Information LACE LACE Length of stay for Answers: 3 days current admission Acuity / Level of Answers: Yes Care: Did the patient have an inpatient admission? Comorbidities - select Answers: Previous myocardial all that apply infarction Other Notes: HTN # of Emergency department Answers: 1-2 visits in the last 6 months Score: 9 Date Signed: 12/06/2018 10:11 AM Electronically Signed By:Alicja He RN [facility] CM Progress Note CM Note CM Note Notes: Chart Review for Discharge Planning: Patient is an 88 year old male who presented to [facility] ED reporting leg pain and presented with difficulty speaking/slurred speech and aphasia. Patient presented to ED with Grand daughter. Medical history includes dementia, hypertension, Myocardial infarction, recent femur fracture. Patient currently lives at [facility]. OT ordered, recommending PRISON/home with 24 hour supervision, PT ordered & recommending SNF, TELEGRAPHIC TYPEWRITER MECHANIC ordered & recommending memory care. CM call to Grand daughter Shante, , she shares he lives at [facility] and has a caregiver that visits 8-10 daily and he also attends adult day services --. He has PT with [facility] on . She shares she would be open to him staying with her when he discharges but is not around very much and is very busy. Shante states she does not know much about her Grandfathers medical history & recommended calling her mom, Marie on her dad's cell phone [phone], who is currently in [facility] on a trip. CM spoke with daughter Marie, CM shared recommendations for SNF, she states he doesn't have history of going to a SNF and though she agrees and thinks it is a good plan, she does not think he will agree and will want to go home. Marie shares she is planning on getting him into an Assisted Living Facility when she returns from [facility] in a month. She states she would like to speak with his MD about the Neuro consult and imaging results. CM [facility], . MARVA stating we are monitoring patient and will send updates as we have them. *Fiorella Salazar in [facility] for one month, can be reached at [phone]. Plan: Neuro recommended MRI of brain and TTE. CM to follow. D/C Plan: TBD Date Signed: 12/02/2018 04:58 PM Electronically Signed By:Naa Durbin [facility] CM Progress Note CM Note CM Note Notes: Spoke with pt's daughter Marie ([facility] who is currently in [place] and will soon be out of phone range. She will be gone for a few weeks. Her brother Perez is the alternate [facility] [phone] and should be contacted for medical decisions. Spoke with both of them regarding therapy recommendation for a short term rehab stay at d/c. They are both in agreement with the plan although not convinced it will benefit their father. Referrals were sent to [facility] (declined pt - concerned about him frequently getting up and down), [facility] and [facility] accepted. Earliest d/c would be 12/06 as pt was just changed from obs status to inpt today. Also spoke with Ksenia the Exec Director at the [facility] and they are concerned about him returning there 10/09 being a high fall risk. It is independent living and pt is currently have difficulty getting around. CM will continue to follow. D/C plan: TBD, possibly SNF Date Signed: 12/03/2018 03:26 PM Electronically Signed By:FRANCOIS Santana [facility] MARCELO Progress Note CM Note CM Note Notes: CM spoke with pt's daughter and son. Both are supportive of d/c to SNF; pt's teo [facility]. Will inform [facility] and ask them to run auth. D/C Plan: [facility] Date Signed: 12/04/2018 11:02 AM Electronically Signed By:Alesha Sanabria [facility] MARCELO Progress Note CM Note CM Note Notes: MARCELO received call from daughter Marie from [facility] asking for status of discharge. CM shared he looks to be clinically stable to discharged as planned tomorrow morning. Marie was asking when he would be discharged, CM shared we will attempt to discharge as early in the morning and will contact [facility] today so they can prepare for discharge to be set up earlier in the morning. Please call Marie at [phone] to update with discharge info tomorrow. MARCELO contacted Huan at [facility] [phone], he will not be in tomorrow but will let Vasiliy to expect to arrange vice president medical affairs transport for the patient. MARCELO to follow. D/C Plan: [facility] Date Signed: 12/05/2018 01:22 PM Electronically Signed By:Naa Durbin Case Management Discharge Plan Note Case Management Discharge Discharge Order Complete? Answers: Yes Patient to Obtain Answers: Other Notes: [facility] Medications Transportation Arranged Answers: Other Transport will Pick (Date 12/06/2018 11:30 AM & Time) Faxed Final Orders Answers: Yes Family Notified Answers: Yes Discharge Comments Notes: Patient discharged to [facility]. Son Paige notified. Transport arranged by Vasiliy at [facility]. JEN Vasquez to call report. Date Signed: 12/06/2018 10:20 AM Electronically Signed By:Alicja He RN Intervention Information Intervention Type:*Incorrect Registration Date of Service:12/01/2018 07:45 AM Patient Type:Observation Staff Member:JEN Domingo, Smita Hours: Discipline: Severity: Comment: Intervention Type:*MCNEIL-Signed Date of Service:12/02/2018 11:38 AM Patient Type:Observation Staff Member:Kateryna Patricio Hours: Discipline: Severity: Comment: Intervention Type:IM-Refused Date of Service:12/06/2018 10:45 AM Patient Type:Inpatient Staff Member:Kateryna Patricio Hours: Discipline: Severity: Comment:Patient read the Medicare Important No leyla and decided he did not feel comfortable signing the form.
== END 2018-12-06 11:39 | DRG 71 ==
LOC: INTOOBSV 21:29 → F3N 22:54 → OBSVTOIN 12-03 10:50
PROVIDERS: ADMIT Internal Medicine; ATTEND Student in an Organized Health Care Education/Training Program
DX: G93.40 Encephalopathy, unspecified (principal); G45.9 Transient cerebral ischemic attack, unspecified; F03.90 Unspecified dementia, unspecified severity, without behavioral disturbance, psychotic disturbance, mood disturbance, and anxiety; E87.1 Hypo-osmolality and hyponatremia; M79.606 Pain in leg, unspecified; W19.XXXA Unspecified fall, initial encounter; I25.10 Atherosclerotic heart disease of native coronary artery without angina pectoris; I10 Essential (primary) hypertension; I25.2 Old myocardial infarction; Z95.5 Presence of coronary angioplasty implant and graft; Z96.643 Presence of artificial hip joint, bilateral
CPT/HCPCS: 82435-PO; 82565-PO; 82947-PO; 84132-PO; 84295-PO; 84484-ER; 84520-PO; 85014-ER; 92507-GN; 92523-GN; 92610-GN; 97116-GP; 97161-GP; 97165-GO; 97530-GO; 97530-GP; 97535-GO; A9585; G0378; G0515-GO; J0360; J1644; J2060

== ENCOUNTER 2019-02-19 09:40 | Emergency (ER) | payer OTHER | END 2019-02-19 11:51 | disposition home or self-care (01) ==